=== PATIENT | female | born 1970 | race Caucasian/White ===

== ENCOUNTER → 2023-11-03 15:08 | Outpatient (REF) | payer OTHER, SELFPAY | LOC: HWWDC 15:08 | PROVIDERS: ATTENDING PHYSICIAN Nurse Practitioner Adult Health; FAMILY PHYSICIAN Family Medicine | DX: Z12.31 Encounter for screening mammogram for malignant neoplasm of breast (principal); Z80.3 Family history of malignant neoplasm of breast | CPT/HCPCS: 77063; 77067 ==

== ENCOUNTER 2024-09-26 19:57 | Emergency (ER) | payer OTHER, SELFPAY ==
[2024-09-26 19:59] VITALS: BP 131/75
[2024-09-26 20:17] LABS: % Basophils 1.1 % (0-2); % Eosinophils 1.1 % (0-6); % Immature Granulocytes 0.3 % (0-0.5); % Lymphocytes 10.2 % (20.5-51.1); % Monocytes 7.8 % (1.7-9.3); % Neutrophils 79.5 % (42.2-75.2); Absolute Basophils 0.1 10^3/uL (0-0.2); Absolute Eosinophils 0.1 10^3/uL (0-0.7); Absolute Lymphocytes 1.1 10^3/uL (1.2-3.4); Absolute Monocytes 0.8 10^3/uL (0.1-0.6); Absolute Neutrophils 8.3 10^3/uL (1.4-6.5); Hematocrit 36.9 % (37.0-47.0); Hemoglobin 12.6 g/dL (12.0-16.0); Mean Corp Hgb Conc. 34.1 g/dL (33.0-37.0); Mean Corpuscular Volume 90.7 fL (81.0-99.0); Mean Platelet Volume 9.2 fL (7.4-10.4); Nucleated Red Blood Cells % 0 %; Platelet Count 227 10^3/uL (130-400); Red Blood Cell Count 4.07 10^6/uL (4.20-5.40); Red Cell Dist. Width 13.7 % (11.5-14.5); White Blood Cell Count 10.5 10^3/uL (4.8-10.8)
[2024-09-26 20:28] LABS: HCG, Serum Qualitative Screen Negative
[2024-09-26 20:31] LABS: ALT (SGPT) 20 U/L (0-35); AST (SGOT) 28 U/L (14-36); Albumin 4.9 g/dl (3.5-5.0); Alkaline Phosphatase 135 U/L (38-126); Blood Urea Nitrogen 6 mg/dl (7-17); Calcium 9.4 mg/dl (8.4-10.2); Carbon Dioxide 25 mmol/L (22-30); Chloride 104 mmol/L (98-107); Glucose 132 mg/dl (70-99); Lipase 32 U/L (23-300); Potassium 3.5 mmol/L (3.5-5.1); Sodium 139 mmol/L (135-145); Total Bilirubin 0.9 mg/dl (0.2-1.3); Total Protein 7.3 g/dl (6.3-8.2); eGFR > 60.00
[2024-09-26 20:36] LABS: COVID-19 Antigen Negative (Negative)
[2024-09-26 22:03] VITALS: BP 129/78; BMI 23.8
--- NOTE | 2024-09-26 22:39 | ED.GENMED ---
History of Present Illness
General
Chief Complaint: Cold/Flu/URI Symptoms
Source: patient
Exam Limitations: none
Time Seen by Provider: 09/26/24 22:32
Nursing documentation reviewed up to this point in time: agreed with
History of Present Illness
History of Present Illness:
53-year-old female fever cough congestion headache body aches dizziness nausea onset a few days ago was recently on vacation in [place], did have some sick contacts, no abdominal pain no dysuria frequency non-smoker occasional drinker
Past History
Past History
ED Past Medical History: None
ED Past Surgical History: None and Other (Abdominoplasty, umbilical hernia repair, right breast lumpectomy, nasal fracture)
Social History
Tobacco: Non-smoker
Alcohol: Occasional
Drug: None
Personal:
Living: with family
Employment: Employed
Review of Systems
Review of Systems
All Other Systems: Not applicable
Constitutional: Reports fever, fatigue and chills
EENT: Reports sore throat and runny nose
Respiratory: Reports cough and trouble breathing
Cardiac: Reports no symptoms
ABD/GI: Reports nausea; Denies abdominal pain
: Reports no symptoms
Musculoskeletal: Reports muscle stiffness
Neurological: Reports dizzy and weakness
Hematologic/Lymphatic: Reports no symptoms
Phy Exam
Physical Exam
Physical Exam:
Physical Exam
General: no apparent distress, not acutely ill
Neck: supple. no meningeal signs. normal psoterior pharynx
Heart: s1/s2 regular rate and rhythm, no murmur. equal radial pulses.
Lungs: no acute respiratory distress. clear bilaterally
Abdomen: normal bowel sounds. not tender. no CVAT
Neuro: alert and oriented. no focal neurological deficits
Skin: no rash
Psychiatric: well kept. interactive and cooperative
Extremities: no edema. no calf tenderness. negative homans. good distal pulses
Course
Orders/Labs/Results
Orders:
Orders
09/26/24 19:59
Test Result ONCE
09/26/24 20:07
COVID-19 Antigen Urgent
Source: Nasal Swab
Influenza A+B Rapid Molecular Urgent
SHAWN Source: Nasal Swab
Specimen Description:
09/26/24 20:08
Complete Blood Count/With Diff Urgent
Comprehensive Metabolic Panel Urgent
HCG, Serum Qualitative Screen Urgent
Lipase Urgent
09/26/24 22:06
CR Chest - 2 Views Urgent
Comment:
Reason For Exam: uri
09/26/24 22:37
0.9% Sodium Chloride 1000 ml [Nss] 1,000 ml IV BOLUS
Ipratropium/Albuterol Sulfate [Duoneb] 3 ml INH R NOW STA
Ketorolac [Toradol] 30 mg IV NOW STA
Ondansetron Injectable [Zofran] 4 mg IV NOW STA
09/26/24 23:46
Amoxicillin 875 mg/Clav 125 mg [Augmentin 875 mg/125 mg] 1 tablet PO NOW STA
Abnormal Lab Results
09/26/24
20:08
RBC 4.07 L 10^6/uL
(4.20-5.40)
Hct 36.9 L %
(37.0-47.0)
Absolute Neuts (auto) 8.3 H 10^3/uL
(1.4-6.5)
Absolute Lymphs (auto) 1.1 L 10^3/uL
(1.2-3.4)
Absolute Monos (auto) 0.8 H 10^3/uL
(0.1-0.6)
Neutrophils % 79.5 H %
(42.2-75.2)
Lymphocytes % 10.2 L %
(20.5-51.1)
BUN 6 L mg/dl
(7-17)
Glucose 132 H mg/dl
(70-99)
Alkaline Phosphatase 135 H U/L
(38-126)
09/26/24 20:08
09/26/24 20:08
Vital Signs
Initial and Last Documented VS:
Initial Vital Signs
Temp Pulse Resp BP Pulse Ox
98.3 F 87 16 131/75 96
09/26/24 19:59 09/26/24 19:59 09/26/24 19:59 09/26/24 19:59 09/26/24 19:59
Last Documented Vital Signs
Temp Pulse Resp BP Pulse Ox
98.3 F 86 18 129/78 98
09/26/24 19:59 09/26/24 22:06 09/26/24 22:06 09/26/24 22:03 09/26/24 22:04
MDM/Problems Addressed
Differential Diagnosis Includes:
Sinusitis pneumonia bronchitis viral syndrome
MDM/Problems Addressed:
Cough congestion headache dizziness nausea
*Radiology
Radiology exam reviewed: radiology read reviewed
*Pulse Oximetry
Patient hypoxic: no
*Critical Care Note
Total Time (30-74mins, 75-104mins- exclusive of procedures): Not Applicable
Update Note
Update Note:
11:45 PM update labs chest x-ray noted patient feeling better
ED Attending Note
-
Portions of this chart may have been created with voice recognition software.� Occasional wrong word or��sound alike� substitutions may have occurred due to the inherent limitations of voice recognition software.
Discharge Plan
Departure
Patient Disposition: Home (Routine Discharge)
Date of Disposition: 09/26/24
Time of Disposition: 23:47
Patient with high blood pressure during this ER visit?: No
Condition: Good
Discharge Problem:
Acute bronchitis, Sinusitis
Instructions: Sinusitis in adults, Acute Bronchitis, Adult (DC)
Prescriptions:
New
amoxicillin-pot clavulanate 875-125 mg tablet
1 tab PO BID Qty: 14 0RF
methylprednisolone [Medrol (Alberto)] 4 mg tablets,dose pack
See Rx Instructions .ROUTE .COMPLEX Qty: 21 0RF
Rx Instructions:
for 6 days
albuterol sulfate 90 mcg/actuation HFA aerosol inhaler
2 inh inhalation QID PRN (Reason: shortness of breath or wheezing) Qty: 8.5 0RF
guaifenesin [Mucinex] 1,200 mg tablet extended release 12hr
1,200 mg PO BID Qty: 20 0RF
No Action
levofloxacin 500 MG tablet
500 mg PO DAILY Qty: 7 0RF
Referrals:
Karen Hummel PA [Family Provider] -
Interventions
Interventions:
*Risk Screen - Suicide Last Done: 09/26/24 22:03
*General Assessment Last Done: 09/26/24 22:03
*Neglect/Abuse Screening Last Done: 09/26/24 22:03
*ED- Fall Risk Assessment Last Done: 09/26/24 22:03
*ED COVID-19 Vaccine History Last Done: 09/26/24 22:03
ED- Pulmonary Assessment Last Done: 09/26/24 22:03
Discharge Date and Time
Print Language: BURMESE
[2024-09-26] MEDS: DUONEB 3 ML INH (22:56)
[2024-09-26] MEDS: ZOFRAN 4 MG IV (23:02)
[2024-09-26] MEDS: TORADOL 30 MG IV (23:02)
[2024-09-26] MEDS: NSS 1000 IV (23:03)
[2024-09-26] MEDS: AUGMENTIN 875 MG/125 MG 1 TABLET PO (23:55)
[2024-09-26 23:56] VITALS: BP 116/68
== END 2024-09-27 00:01 | disposition home or self-care (01) ==
LOC: EMR 19:57
PROVIDERS: Emergency Medicine; EMERGENCY PHYSICIAN Emergency Medicine; FAMILY PHYSICIAN Physician Assistant Medical
DX: J20.9 Acute bronchitis, unspecified (principal); J32.9 Chronic sinusitis, unspecified
CPT/HCPCS: 99284; 96374; 96375; 96361; 94640; 71046; 80053; 83690; 84703; 85025; 87502; 87811

== ENCOUNTER → 2024-11-03 11:28 | Outpatient (REF) | payer OTHER, SELFPAY | LOC: HWWDC 11:28 | PROVIDERS: ATTENDING PHYSICIAN Nurse Practitioner Adult Health; FAMILY PHYSICIAN Physician Assistant Medical | DX: Z12.31 Encounter for screening mammogram for malignant neoplasm of breast (principal) | CPT/HCPCS: 77063; 77067 ==